=== PATIENT | female | born 1995 | race African-American/Black ===

== ENCOUNTER 2017-12-20 16:04 | Emergency (ER) | payer OTHER ==
[2017-12-20] MEDS: ACETAMINOPHEN 325 MG TAB PO (17:00)
[2017-12-20 17:12] LABS: KETONE, URINE AUTO RFX 1+ mg/dL (NEGATIVE); MUCUS, URINE RFX SMALL (NEGATIVE); NITRITE, URINE AUTO RFX NEGATIVE (NEGATIVE); RBC, URINE AUTO RFX TNTC /HPF (0-3); SPECIFIC GRAVITY UR AUTO RFX 1.017 (1.002-1.035); SQUAM EPITHELIAL CELL UR AURFX 3 /HPF (0-6)
[2017-12-20 17:13] LABS: LEUKOCYTE ESTERASE UR AUTO RFX 3+ (NEGATIVE); WBC, URINE AUTO RFX TNTC /HPF (0-3)
[2017-12-20] MEDS: CIPROFLOXACIN 500 MG TAB PO (17:28)
[2017-12-20] MEDS: PHENAZOPYRIDINE 100 MG TAB PO (17:29)
== END 2017-12-20 17:31 | disposition home or self-care (01) ==
LOC: M ED 16:04
DX: N10 Acute pyelonephritis (principal); Z72.0 Tobacco use
CPT/HCPCS: 81001

== ENCOUNTER 2018-12-12 22:36 | Emergency (ER) | payer SELFPAY ==
[~2018-12-12] VITALS: Ht 172.7 cm; Wt 89.4 kg
[~2018-12-12 22:36] MED LIST: ACET500C PO; CIPR-249 PO; DIBU10OI TOP; GLYB25TA PO; MOTR200T44 PO; PRENTAB40 PO; PYRI1TAB5 PO
[2018-12-12 22:37] VITALS: BP 125/72
[2018-12-12] MEDS ORDERED: [UNRECOGNIZED DRUG - OTHER] (22:41)
== END 2018-12-12 23:27 | disposition left against medical advice (07) ==
LOC: M ED 22:36
DX: Z53.21 Procedure and treatment not carried out due to patient leaving prior to being seen by health care provider (principal)

== ENCOUNTER 2019-07-05 03:13 | Outpatient (CLI) | payer OTHER, SELFPAY ==
[~2019-07-05] VITALS: Ht 172.7 cm; Wt 103.6 kg
[~2019-07-05 03:13] MED LIST changes: +[UNRECOGNIZED DRUG - OTHER]
[2019-07-05 03:28] VITALS: BP 120/70
--- NOTE | 2019-07-05 06:45 | HPE ---
DATE OF ADMISSION: 07/05/2019 24-year-old, 2, para 1, last menstrual period (LMP) 10/02/2018, expected date of confinement (EDC) 07/08/2038 at 39 and 3 with history of vague contractions and vaginal bleeding. Risk factors is she was STD positive, test of cure negative; she is a smoker. Past History: 2016 - Induction of labor at 39 weeks, AGDM 2, female, spontaneous vaginal delivery, 8 pounds 7 ounces. Labs: O+. HIV negative. Hepatitis negative. RPR negative. Rubella immune. Varicella immune. Pap normal. Urine negative. Gonorrhea negative. Chlamydia was positive, test of cure negative. was not treated. Early 1-hour GTT was 96. 28-week GTT 144. 3-hour GTT fasting was 99, 1-hour 133, 2-hour 128, and 3-hour was 99. She is GBS negative. Blood pressure 120/70, respirations 14, pulse 93, temperature 97.8. Urine 1.015, pH 5, 250 blood, 50 of glucose and trace of protein. On examination, no distress. Symphysis fundus height is 40, vertex, occiput anterior (OA). Category one strip. -3 station, thick, closed. No vaginal bleeding or loss. Minimal show. Plans are to discharge with instructions. She has an appointment with Jamila RICHARDSON on Tuesday. Planned induction of labor at 41 weeks of gestation.
== END 2019-07-05 04:55 | disposition home or self-care (01) ==
LOC: M LDO 03:13
PROVIDERS: ATTEND Obstetrics & Gynecology
DX: O26.853 Spotting complicating pregnancy, third trimester (principal); Z3A.39 39 weeks gestation of pregnancy
CPT/HCPCS: 59025; G0378; G0463

== ENCOUNTER 2019-07-15 09:12 | Inpatient (IN) | payer OTHER ==
[~2019-07-15] VITALS: Ht 172.7 cm; Wt 105.6 kg
[2019-07-15] VITALS (21 sets, daily range): BP systolic 108–141; BP diastolic 56–102
[2019-07-15] MEDS ORDERED: PRENTAB9 PO (09:43)
[2019-07-15] MEDS: LR 1,000 ML IV SCH ×2 (10:01→20:21)
[2019-07-15] MEDS ORDERED: miSOPROStol 25 MCG 1/4 TAB (S0191) SL SCH (11:00)
--- NOTE | 2019-07-15 11:10 | HPEPDOC ---
Obstetrical History & Physical General Date of Admission Jul 15, 2019 at 09:12 History of Present Illness patient is a 24 yo @ 40+6wks gestation presents for IOL for pending post da fredrick. patient denies ctx/lof/vb. +FM. Chief Complaint: Other (IOL) Information Provided By: Patient Age: 24 : 2 Term: 1 Pre-term: 0 Abortions: 0 Livin Care Care: Good Care Dating Final EDC: Jul 09, 2019 Final EDC for Daily Update: Jul 09, 2019 Final EDC by: LMP Past Medical History Past Obstetrical History : Past Obstetrical History: Multigravida ( x 1, 8lbs 7oz) Type of Delivery: Spontaneous Vaginal Del. 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 used to smoke 1-2cigs/day) Alcohol: Denies Drugs: denies Imunizations Tdap status: current Influenza Status: current Allergies Coded Allergies: No Known Allergies (Unverified , 03/18/15) Medications Scheduled No.137/Iron/Folic Acd ( Vitamin Tablet) 1 Each Tablet, 1 TAB PO DAILY Physical Examination Physical Examination GENERAL: Alert and oriented times three. ABDOMEN: Gravid and non-tender to touch. FETUS: Is vertex (VTX) by sterile vaginal examination (SVE), fetus is vertex (VTX) by Cristi, confirmed with US. HEART RATE: Regular rate and rhythm. LUNGS: Clear to auscultation (CTA). EXTREMITIES: No edema. No clonus. EFW: 3800gm Vital Signs/I&O Vital Signs Date Time Temp Pulse Resp B/P (MAP) Pulse Ox O2 Delivery O2 Flow Rate FiO2 07/15/19 09:39 97.4 103 18 120/72 (88) Laboratory Data 24H LABS Laboratory Tests 2 07/15/19 09:27: Serology Scanned Report Hepatitis B Testing Pertinent Laboratoy Data Blood Type: O+ RBC Antibody Screen: Negative HIV: Negative Rapid Plasma Reagin: Nonreactive Rubella: Immune Varicella: Immune Chlamydia/Gonorrhea: Negative Group B Streptococcus: Negative Glucose Tolerance Test: 144 (3hr: 99/133/128/99) Anatomy Ultrasound Placenta Location: Anterior Normal Anatomy: Yes Placenta Previa: No Vaginal Examination Dilation: None Effacement: other (long) Station: -3 (high) Cervical Consistency: Firm Cervical Position: Posterior Presentation: Cephalic presentation Assessment Heart Rate (FHR): 150 Variability: Moderate Accelerations: Positive Decelerations: None Tocometer Contractions: Yes Frequency: greater than 10 min/apart Assessment/Plan Assessment patient is a 24 yo @ 40+6 admitted for IOL for pending post dates. Discussed cytotect, reyes bulb, oxytocin and arom as needed for IOL. Discussed with patient regarding external and internal monitoring. Risk of infection requiring antibiotics, bleeding requiring blood transfusion with associated risks, emergent delivery, operative vaginal delivery with forceps or vacuum and associated risks, and episiotomy discussed with patient. Plan Admit and orient. Diplomatic Interpreter/Translator and consent. Diet: regular Group B Streptococcus (GBS) negative. Labs and intravenous (IV) per unit protocol. Cytotec, reyes bulb, oxytocin and arom as needed for IOL. pelvis proven anesthesia consult SANJEEV RAMOS DO Jul 15, 2019 11:10
[2019-07-15 11:14] LABS: HEMATOCRIT 36.7 % (36.0-47.0); HEMOGLOBIN 11.7 g/dl (12.0-15.5); MEAN CORPUSCULAR HEMOGLOBIN 26.1 pg (27.0-33.0); MEAN CORPUSCULAR HGB CONC 31.9 g/dl (32.0-36.5); MEAN CORPUSCULAR VOLUME 81.7 fl (80.0-96.0); PLATELET COUNT, AUTOMATED 404 10^3/uL (150-450); RED BLOOD COUNT 4.49 10^6/uL (4.00-5.40); WHITE BLOOD COUNT 14.1 10^3/uL (4.0-10.0)
[2019-07-15] MEDS ORDERED: miSOPROStol 50 MCG 1/2 TAB (S0191) PO ONE (15:00)
[2019-07-15] MEDS ORDERED: OXYTOCIN DRIP 30 UNITS in IV 1 EA IV SCH (19:45)
--- NOTE | 2019-07-15 20:24 | IPNPDOC ---
Text Note Date of Service The patient was seen on 07/15/19. NOTE patient is feeling mild contractions. she received 2 doses of cytotec (25mcg and 50mcg). vitals: normal nad, laying in bed fth: 155/mod bebeto/pos accel/occasional decel. toco: ctx q 2-4mins ce: /-3 (per nursing check) a/p patient in early labor. start pit and titrate to effect. discussed with patient regarding pain management per patient guidance. recheck in 6 hrs, sooner as needed. Molly, DO VS,Andreasbone, I+O VS, Fishbone, I+O Laboratory Tests 07/15/19 11:02 Vital Signs Date Time Temp Pulse Resp B/P (MAP) Pulse Ox O2 Delivery O2 Flow Rate FiO2 07/15/19 19:12 98.0 72 18 108/60 (76) 99 Room Air SANJEEV RAMOS DO Jul 15, 2019 20:24
[2019-07-15] MEDS ORDERED: FENTANYL 2MCG/ML ROPIVACAINE 0.2% IN 0.9% NACL 100ML IVBAG As Ordered ONE (20:54)
[2019-07-15] MEDS ORDERED: REFRIGERATOR IV KEYS XX PRN (21:20)
[2019-07-15] MEDS ORDERED: ePHEDrine SULFATE 25 MG/5 ML(5MG/ML) SYRINGE IV PRN (21:20)
[2019-07-15] MEDS ORDERED: NALOXONE INJ 0.4MG/1ML VIAL (J2310 PER 1MG) IV PRN (21:20)
[2019-07-15] MEDS ORDERED: LACTATED RINGER'S 1000 ML IV PRN (21:20)
[2019-07-15] MEDS ORDERED: EPIDURAL COMMENT XX SCH (21:20)
[2019-07-15] MEDS ORDERED: ONDANSETRON 4MG/2ML VIAL (J2405 PER 1MG) IV PRN (21:20)
[2019-07-15] MEDS ORDERED: FENTANYL/ROPIVACAINE/NACL BAG 100 ML EPIDURAL SCH (21:20)
[2019-07-15] MEDS ORDERED: EPIDURAL/PCA KEYS XX PRN (21:20)
[2019-07-15] MEDS ORDERED: diphenhydrAMINE 50MG/ML VIAL (J1200) IV PRN (21:20)
[2019-07-16] VITALS (9 sets, daily range): BP systolic 113–134; BP diastolic 55–78
--- NOTE | 2019-07-16 00:01 | IPNPDOC ---
Text Note Date of Service The patient was seen on 07/15/19. NOTE patient has epidural for analgesic. feeling increased vaginal pressure. pit turned off for recurrent late decels. vitals: normal fht: 150/min-mod bebeto/pos accel/occasional late decel toco: ctx q 2mins CE: 6/80/-2, AROM clear A/P patient in active labor. continue with intrauterine resuscitation, internal monitor as needed. recheck in 2 hrs or sooner as indicated. Molly, DO VS,Juan Carlos, I+O VS, Juan Carlos, I+O Laboratory Tests 07/15/19 11:02 Vital Signs Date Time Temp Pulse Resp B/P (MAP) Pulse Ox O2 Delivery O2 Flow Rate FiO2 07/15/19 20:23 75 18 123/78 (93) 07/15/19 19:12 98.0 99 Room Air SANJEEV RAMOS DO Jul 16, 2019 00:01
[2019-07-16] MEDS ORDERED: OXYTOCIN DRIP 30 UNITS in IV 1 EA IV SCH (00:37)
[2019-07-16] MEDS ORDERED: RHOGAM 300 MCG (1500 IU) INJ (J2790) IM SCH (00:45)
[2019-07-16] MEDS ORDERED: ACETAMINOPHEN TAB 650MG DOSE (2X325MG) PO PRN (00:45)
[2019-07-16] MEDS ORDERED: DIBUCAINE 1% OINTMENT 30GM TOP PRN (00:45)
[2019-07-16] MEDS ORDERED: MEASLES,MUMPS,RUBELLA VACCINE INJ (MMR-II) (90707) SC SCH (00:45)
[2019-07-16] MEDS ORDERED: IBUPROFEN 800 MG TAB PO PRN (00:45)
--- NOTE | 2019-07-16 00:48 | DNPDOC ---
[facility] Delivery Note Delivery Note DATE OF DELIVERY: 07/16/2019 PREDELIVERY DIAGNOSIS: 41+0/7 weeks' gestation and labor. POST DELIVERY DIAGNOSIS: Delivered. PROCEDURE: Spontaneous vaginal delivery ORTHO RN: Dr. Joel Barnes DO ANESTHESIA: epidural ESTIMATED BLOOD LOSS: 300 mL. FINDINGS: 7 pound 14ounce, 3580gm, female , Score 8/9 DELIVERY SUMMARY: With good maternal effort, baby delivered OA, restituted LOT. Anterior shoulder delivered followed by posterior shoulder. body followed with ease. Baby placed on maternal abdomen. cord allowed to stop pulsating. cord clamped x 2 and cut. Cord blood collected per routine. pitocin bolus started. placenta delivered spontaneously. fundus massaged firm. inspection reveals no laceration. Baby and mother bonding when I left the room. DO RACHEL Barnes LUAT N. DO Jul 16, 2019 00:48
--- NOTE | 2019-07-16 06:35 | IPNPDOC ---
Progress Note Date of Service: Jul 16, 2019 Day#: 0 Progress Note SUBJECT: patient is a 24 yo S/P early this AM, day of delivery without concerns today. She has been ambulating, voiding spontaneously without issue and tolerating regular diet. Plans on . Reports lochia is like a normal period. declined on contraceptive counseling. OBJECTIVE: VITAL SIGNS: Within normal limits, afebrile. Alert and oriented times three. Abdomen: Fundus firm at U-2. Soft, NTTP. LE: no edema/erythema/tenderness A/P patient is day of delivery, doing well. discussed contraceptive options, patient is not interested. recommend at least 12 months prior to next . encourage bf. routine ppc. anticipated d/c home tomorrow. Molly, VS, I&O, 24H, Fishbone Vital Signs/I&O Vital Signs Date Time Temp Pulse Resp B/P (MAP) Pulse Ox O2 Delivery O2 Flow Rate FiO2 07/16/19 05:49 97.9 90 18 117/63 (81) 07/15/19 19:12 99 Room Air I&O- Last 24 Hours up to 6 AM 07/16/19 05:59 Intake Total 2350.7 ml Output Total 800 ml Balance 1550.7 ml Laboratory Data 24H LABS Laboratory Tests 2 07/15/19 09:27: Serology Scanned Report Hepatitis B Testing 07/15/19 11:02: Nucleated Red Blood Cells % (auto) 0.0 CBC/BMP Laboratory Tests 07/15/19 11:02 SANJEEV RAMOS DO Jul 16, 2019 06:35
[2019-07-16] MEDS ORDERED: MIRALAX *UNIT DOSE* 17GM PACKET PO SCH (09:00)
[2019-07-16] MEDS ORDERED: PRENATAL VITAMINS CHEWABLE TABLET PO SCH (09:00)
[2019-07-16] MEDS: PRENATAL VITAMINS CHEWABLE TABLET PO SCH (09:07)
--- NOTE | 2019-07-17 05:49 | IPNPDOC ---
Progress Note Date of Service: Jul 17, 2019 Day#: 2 Progress Note SUBJECT: Patient is a 24-year-old 2 now Para 2 status post uncomplicated spontaneous vaginal delivery without vaginal laceration, doing well day # 1. She has been ambulating, voiding spontaneously without issue and tolerating regular diet. Breast feeding without issue. Reports lochia is less than a normal period]. Patient is ambulating well. Reports some cramping with . Denies any pain. OBJECTIVE: VITAL SIGNS: Within normal limits, afebrile. GENERAL: No acute distress HEENT: MMM BREAST: Nontender, no erythema CARDIOVASCULAR EXAMINATION: RRR RESPIRATORY EXAMINATION: Bilaterally clear ABDOMINAL EXAMINATION: Soft, appropriate tenderness, nondistended, fundus -2 PERINEUM: Intact, minimal lochia EXTREMITIES: no edema, nontender ASSESSMENT: Patient is a 24-year-old 2 now Para 2 status post uncomplicated spontaneous vaginal delivery without vaginal laceration, doing well day # 1. Vitals within normal limits, afebrile, hemodynamically stable with no evidence of infection. PLAN: 1. Discharge to home today. 2. Tylenol and aspirin for pain. 3. Encourage breast feeding and ambulation. 4. Routine PP visit in 6 weeks in clinic. 6. Discussed return precautions at length. VS, I&O, 24H, Fishbone Vital Signs/I&O Vital Signs Date Time Temp Pulse Resp B/P (MAP) Pulse Ox O2 Delivery O2 Flow Rate FiO2 07/16/19 18:19 98.2 115 18 115/66 (82) 07/15/19 19:12 99 Room Air Emma Griffin MD Jul 17, 2019 05:47
[2019-07-17] MEDS ORDERED: ACET1TAB55 PO (05:50)
[2019-07-17] MEDS ORDERED: DIBU10OI TOP (05:50)
--- NOTE | 2019-07-17 05:52 | DS.PDOC ---
Discharge Summary General Date of Admission Jul 15, 2019 at 09:12 Date of Discharge 07/16/2019 Discharge Summary PROCEDURES PERFORMED DURING STAY: None. ADMITTING DIAGNOSES: 1. Postdates term DISCHARGE DIAGNOSES: 1. Postdates term COMPLICATIONS/CHIEF COMPLAINT: Induction. HISTORY OF PRESENT ILLNESS: see H&P HOSPITAL COURSE: Patient had IOL with uncomplicated . Bleeding like menses. Tolerating diet. Passing flatus. Able to ambulate. Pain tolerable with pain medications. Urinating without difficulty. DISCHARGE MEDICATIONS: Please see below. ALLERGIES: Please see below. PHYSICAL EXAMINATION ON DISCHARGE: VITAL SIGNS: Please see below. GENERAL: No acute distress HEENT: MMM BREAST: Nontender, no erythema CARDIOVASCULAR EXAMINATION: RRR RESPIRATORY EXAMINATION: Bilaterally clear ABDOMINAL EXAMINATION: Soft, appropriate tenderness, nondistended, fundus -2 EXTREMITIES: no edema, nontender LABORATORY DATA: Please see below. IMAGING: none PROGNOSIS: Good ACTIVITY: Pelvic rest. DIET: Regular DISCHARGE PLAN: Home DISPOSITION: . DISCHARGE INSTRUCTIONS: 1. See attached. ITEMS TO FOLLOWUP ON ON OUTPATIENT: 1. 6wks in clinic. DISCHARGE CONDITION: Stable. TIME SPENT ON DISCHARGE: Greater than 10 minutes. Vital Signs/I&Os Vital Signs Date Time Temp Pulse Resp B/P (MAP) Pulse Ox O2 Delivery O2 Flow Rate FiO2 07/16/19 18:19 98.2 115 18 115/66 (82) 07/15/19 19:12 99 Room Air Discharge Medications Scheduled No.137/Iron/Folic Acd ( Vitamin Tablet) 1 Each Tablet, 1 TAB PO DAILY, (Reported) Scheduled PRN Acetaminophen (Acetaminophen) 325 Mg Tablet, 650 MG PO Q4HP PRN for fever Dibucaine (Dibucaine) 28 Gm Oint...g., 0 DOSE TOP Q4HP PRN for PAIN Allergies Coded Allergies: No Known Allergies (Unverified , 03/18/15) Emma Griffin MD Jul 17, 2019 05:52
[2019-07-17 06:12] VITALS: BP 122/70
[2019-07-17] MEDS: PRENATAL VITAMINS CHEWABLE TABLET PO SCH (08:50)
== END 2019-07-17 13:09 | disposition home or self-care (01) | DRG 807 ==
LOC: M LDI 09:12 → M OBS 07-16 02:39
PROVIDERS: ADMIT Obstetrics & Gynecology; ATTEND Obstetrics & Gynecology
PROC: 3E0DXGC Introduction of Other Therapeutic Substance into Mouth and Pharynx, External Approach (ICD-10-PCS; 2019-07-15)
PROC: 10E0XZZ Delivery of Products of Conception, External Approach (ICD-10-PCS; principal; 2019-07-16)
DX: O48.0 Post-term pregnancy (principal); Z37.0 Single live birth; Z3A.40 40 weeks gestation of pregnancy